=== PATIENT | male | born 1965 ===

== ENCOUNTER 2022-04-08 21:41 | Emergency (ER) | payer OTHER, MEDICAID ==
[2022-04-08] MEDS ORDERED: Take Home: Acetaminophen/oxyCODONE 325-5 MG, 2 Tab Pack ONE (22:32)
[2022-04-08] MEDS: Take Home: Acetaminophen/oxyCODONE 325-5 MG, 2 Tab Pack PO ONE (22:53)
== END 2022-04-08 23:05 | disposition home or self-care (01) ==
LOC: CC.ED 21:41
DX: S46.911A Strain of unspecified muscle, fascia and tendon at shoulder and upper arm level, right arm, initial encounter (principal); F41.9 Anxiety disorder, unspecified; Z87.891 Personal history of nicotine dependence; Z79.899 Other long term (current) drug therapy; X58.XXXA Exposure to other specified factors, initial encounter
CPT/HCPCS: 73030-RT; 99283; A9270-GY